=== PATIENT | male | born 1985 | race Caucasian/White ===

== ENCOUNTER 2021-03-07 12:35 | Emergency (ER) | payer BC ==
--- OUTSIDE RECORDS SUMMARY | 2021-03-07 12:38 | XMS REPORT | Continuity of Care Document ---
:1985 Author Organization [facility] t Address [address] [place] [address] Care Team Providers Name Role Phone Unavailable Unavailable Unavailable Problems This patient has no known problems. Allergies, Adverse Reactions, Alerts This patient has no known allergies or adverse reactions. Medications Ordered Filled Start Stop Current Ordering Indication Dosage Frequency Signature Comments Components Source Medication Medication Date Date Medication? Clinician (SIG) Name Name Sumatriptan Sumatriptan Yes Blair [address] [facility] Succinate Succinate 6-01 [place] [facility] Ventolin Ventolin Yes Blair [address] [facility] HFA HFA [place] [facility] Immunizations Ordered Filled Immunization Date Status Comments Sourc e Immunization Name Name Flucelvax - Flucelvax - 2019-04-[address] [facility] - multidose vial multidose vial 00:00:00 [facility] Procedures This patient has no known procedures. Encounters Start End Encounter Admission Attending Care Care Encounter Source Date/Time Date/Time Type Type Clinicians Facility Department ID 2021-03-06 2021-03-06 Outpatient [facility] [id number] [facility] 2020-06-12 2020-06-12 [facility] [id number] 2020-06-12 2020-06-12 Outpatient [facility] [id number] [facility] 2019-12-22 2019-12-22 [facility] [id number] [facility] 14:[facility]:00 14[facility]:[place] [facility] Medicine l Medicine Outpati ent Clinics 2019-11-16 2019-11-16 [facility] [id number] [facility] 15:20:00 15:20:00 [place] [facility] Medicine l Medicine Outpati ent Clinics 2019-10-20 2019-10-20 [facility] [id number] 13:45:00 13:45:00 [place] [employer] [facility] - [facility] l Medicine Outpati ent Clinics 2019-09-19 2019-09-19 [facility] [id number] [address] 13:15:00 13:15:00 [place] [employer] [facility] Medicine Outpati ent Clinics 2019-05-05 2019-05-05 [facility] [id number] [facility] 10:00:00 10:00:00 [place] [employer] [facility] Medicine l Medicine Outpati ent Clinics 2019-04-21 2019-04-21 [facility] [id number] [address] 09:30:00 09:30:00 [place] [employer] [facility] l Medicine Outpati ent Clinics 2019-04-20 2019-04-20 [facility] [id number] [facility] 15:00:00 15:00:00 [place] [employer] [facility] Medicine l Medicine Outpati ent Clinics 2018-10-11 2018-10-11 [facility] [id number] [facility] 10:00:00 10:00:00 [place] [employer] [facility] l Medicine Outpati ent Clinics 2018-01-21 2018-01-21 [facility] [id number] [address] 11:00:00 11:00:00 [place] [employer] [facility] Medicine Outpati ent Clinics 2017-12-11 2017-12-11 [facility] [id number] [facility] 10:15:00 10:15:00 t [email or web address] [facility] Medicine Outpati ent Clinics Results This patient has no known results.
--- NOTE | 2021-03-07 13:19 | RAD REPORT ---
EXAM DESCRIPTION: CT - Ct Stroke Brain Wo Cont - 03/07/2021 12:59 pm CLINICAL HISTORY: falcial droop COMPARISON: Head Brain Wo Cont dated 12/16/2017 TECHNIQUE: All CT scans are performed using dose optimization technique as appropriate and may inclu de automated exposure control or mA/KV adjustment according to patient size. FINDINGS: No intracranial hemorrhage, hydrocephalus or extra-axial fluid collection.No areas of brai n edema or evidence of midline shift. Remote left basal ganglia lacunar infarct. The paranasal sinuses and mastoids are clear. The calvarium is intact. IMPRESSION: No acute intracranial abnormality.
[2021-03-07 13:24] LABS: Absolute Lymphocytes (CBC) 2.2 K/uL (0.7-4.9); Basophils % 0.5 % (0-1.3); Hematocrit 42.9 % (39.6-49.0); MPV 8.1 fL (7.6-11.3)
[2021-03-07 13:41] LABS: Protime INR 0.99
[2021-03-07] MEDS ORDERED: ASPIRIN 81 MG CHEWABLE TABLET ONE (13:44)
[2021-03-07] MEDS ORDERED: predniSONE 20 MG TAB ONE (13:44)
[2021-03-07] MEDS ORDERED: FOLIC ACID 5 MG/ML VIAL ONE (13:45)
[2021-03-07] MEDS ORDERED: NA CHLORIDE 0.9% 1,000 ML ONE (13:45)
[2021-03-07 13:57] LABS: ALT/SGPT 33 U/L (12-78); AST/SGOT 12 U/L (15-37); Albumin 4.1 g/dL (3.4-5.0); Alkaline Phosphatase 41 U/L (45-117); BUN Blood Urea Nitrogen 10 mg/dL (7-18); Bicarbonate 29 mmol/L (21-32); Bilirubin Direct 0.1 mg/dL (0-0.2); Bilirubin Total 0.4 mg/dL (0.2-1.0); Glucose Level 96 mg/dL (74-106); NT PRO-BNP 18 pg/mL (<125); Protein, Total 7.5 g/dL (6.4-8.2); Sodium Level 140 mmol/L (136-145); Troponin (Emerg Dept Use Only) < 0.02 ng/mL (0.0-0.045)
[2021-03-07] MEDS ORDERED: VALACYCLOVIR 500 MG TAB PO ONE (14:00)
--- NOTE | 2021-03-07 14:37 | RAD REPORT ---
EXAM DESCRIPTION: - CP - 03/07/2021 2:13 pm CLINICAL HISTORY: WEAKNESS COMPARISON: No comparisons TECHNIQUE: Real-time sonographic evaluation of both carotid systems was performed. Doppler interroga tion was performed with waveform tracing bilaterally. FINDINGS: Normal high resistance waveforms are noted in both external carotid arteries. The common c arotid arteries and internal carotid arteries show normal low resistance waveforms. No significant plaque formation is seen. Peak systolic and end diastolic velocity values and the ICA/ CCA ratios are in the non-hemodynamically significant range. Antegrade flow seen in both vertebral arteries. IMPRESSION: No significant atherosclerotic changes noted. No evidence of a hemodynamically significant stenosis.
--- NOTE | 2021-03-07 14:57 | RAD REPORT ---
EXAM DESCRIPTION: MRI - Brain Wo Cont - 03/07/2021 2:33 pm CLINICAL HISTORY: Facial droop COMPARISON: Head CT from 03/07/2021, 12/16/2017 TECHNIQUE: Sagittal T1-weighted images were obtained along with PD/heavily T2-weighted and T2-FLAIR images. Axial DWI and ADC mapping sequences were also obtained along with coronal heavily T2-weighted images were obtained. FINDINGS: No intracranial hemorrhage, mass or acute infarction. There is no edema or shift of midlin e structures. No extra-axial fluid collections. Sandoval-matter/white matter junction is preserved. Signa l voids are seen as a normal finding in the major intracranial vessels. Remote left basal ganglia lac unar infarct. Mastoid air cells and paranasal sinuses are clear. IMPRESSION: No acute intracranial abnormality. Specifically, no evidence of acute infarct.
--- NOTE | 2021-03-07 15:14 | ER ---
Nurse's Notes [facility] Name: Shalom Gardner Jr Age: 35 yrs Sex: Male : 1985 Arrival Date: 03/07/2021 Time: 12:[address] Private MD: Diagnosis: Redi's palsy Presentation: 03/07 12:43 Chief complaint: Patient states: left sided facial droop, noticed it about an hour sv ago, unknown time of onset. Denies numbness/tingling, headache, visual deficits. Coronavirus screen: Client denies travel out of the [place] in the last 14 days. At this time, the client does not indicate any symptoms associated with coronavirus-19. Ebola Screen: No symptoms or risks identified at this time. Risk Assessment: Do you want to hurt yourself or someone else? Patient reports no desire to harm self or others. Onset of symptoms was March 07, 2021. 12:43 Method Of Arrival: Ambulatory sv 12:43 Acuity: TRINITY 2 sv 12:45 An acute neurological deficit is present. Pre-hospital glucose is not applicable to sv this patient. 12:45 Initial Sepsis Screen: Does the patient meet any 2 criteria? No. Patient's initial sv sepsis screen is negative. Does the patient have a suspected source of infection? No. Patient's initial sepsis screen is negative. Triage Assessment: 12:43 The onset of the patients symptoms was March 07, 2021 at 11:50. General: Appears in no sv apparent distress. comfortable, Behavior is calm, cooperative, appropriate for age. Pain: Denies pain. Neuro: Level of Consciousness is awake, alert, obeys commands, Oriented to person, place, time, situation, Health Outcomes Liaison are equal bilaterally Moves all extremities. Full function Gait is steady, Speech is normal, Facial droop on left, Facial symmetry: tongue is midline, Denies weakness blurred vision dizziness, numbness headache photophobia diplopia. Respiratory: Respiratory effort is even, unlabored, Respiratory pattern is regular, symmetrical. Derm: Skin is pink, warm \T\ dry. 13:10 Neuro: Reports weakness in left eye and left corner of mouth. ld1 Stroke Activation: Physician: Stroke Attending; Name: ; Notified At: 12:54; Arrived At: Physician: Chief Stroke Resident; Name: ; Notified At: 12:54; Arrived At: Physician: Stroke Resident; Name: ; Notified At: 12:54; Arrived At: Physician: ED Attending; Name: ; Notified At: 12:54; Arrived At: Physician: ED Resident; Name: ; Notified At: 12:54; Arrived At: Historical: - Allergies: 12:45 No Known Allergies; sv - PMHx: 12:45 Asthma; sv - PSHx: 12:45 Ulcer; sv - Immunization history:: Client reports receiving the 2nd dose of the Covid vaccine, Client reports receiving the 1st dose of the Covid vaccine. - Social history:: Smoking status: Patient denies any tobacco usage or history of. - Family history:: not pertinent. Screenin:27 Abuse screen: Denies threats or abuse. Denies injuries from another. Nutritional ld1 screening: No deficits noted. Tuberculosis screening: No symptoms or risk factors identified. Fall Risk None identified. Assessment: 12:50 Reassessment: Dr Prince in triage assessing pt. sv 13:10 VAN Scoring: Arm Drift: Patients demonstrates NO arm weakness. Patient is VAN Negative. ld1 Visual Disturbance: No visual disturbance noted. Aphasia: No aphasia noted. Neglect: No neglect noted. Patient has been NPO before screening. The patient is alert, and able to follow commands. The patient does not exhibit slurred or garbled speech. The patient is not exhibiting difficulty speaking. The patient does not exhibit difficulty understanding words. The patient is able to swallow own secretions with no drooling or need for suction. Patient tolerated one teaspoon of water. No drooling, immediate coughing, gurgling, or clearing of the throat was noted. The patient tolerated 90mL of water. No drooling, immediate coughing, gurgling, or clearing of the throat was noted. The patient passed the bedside swallow screening. Oral medications may be given as ordered. Contact Physician for further diet orders. Provider notified of bedside swallow screening results: Jose David Prince MD. T-PA (Activase) Screening: Indications: Definite evidence of stroke, ischemic, embolic, or hypertensive: No. General: Appears in no apparent distress. comfortable, Behavior is calm, cooperative, appropriate for age. Pain: Denies pain. Neuro: Level of Consciousness is awake, alert, obeys commands, Oriented to person, place, time, situation, Appropriate for age. Cardiovascular: Capillary refill < 3 seconds Patient's skin is warm and dry. Respiratory: Airway is patent Respiratory effort is even, unlabored, Respiratory pattern is regular, symmetrical. GI: Abdomen is round non-distended. : No signs and/or symptoms were reported regarding the genitourinary system. EENT: No signs and/or symptoms were reported regarding the EENT system. Derm: No signs and/or symptoms reported regarding the dermatologic system. Musculoskeletal: No signs and/or symptoms reported regarding the musculoskeletal system. Vital Signs: 12:45 BP 139 / 90; Pulse 71; Resp 16; Temp 98.3; Pulse Ox 100% ; Weight 122.47 kg; Height 6 sv ft. 0 in. (182.88 cm); Pain 0/10; 13:10 BP 129 / 78; Pulse 73; Resp 15; Temp 98.5(O); Pulse Ox 100% on R/A; Weight 122.47 kg; ld1 Height 6 ft. 0 in. (182.88 cm); Pain 0/10; 13:10 Body Mass Index 36.62 (122.47 kg, 182.88 cm) ld1 NIH Stroke Scale Scores: 13:10 NIHSS Score: 1 ld1 ED Course: 12:39 Patient arrived in ED. ja2 12:43 Arm band placed on. sv 12:45 Triage completed. sv 12:54 Jose David Prince MD is Attending Physician. rah 12:59 CT Stroke Brain w/o Contrast In Process Unspecified. EDMS 13:10 Inserted saline lock: 20 gauge in left antecubital area, using aseptic technique. Blood ld1 collected. 13:26 Melina Amezcua, RN is Primary Nurse. ld1 13:27 Patient has correct armband on for positive identification. Placed in gown. Bed in low ld1 position. Call light in reach. Side rails up X2. court monitor on. Pulse ox on. NIBP on. Door closed. Noise minimized. Warm blanket given. 13:27 No provider procedures requiring assistance completed. ld1 13:35 Carotid Artery Bilateral US In Process Unspecified. EDMS 14:33 Brain Wo Cont In Process Unspecified. EDMS 15:10 XRAY Chest (1 view) In Process Unspecified. EDMS 15:13 Michael Alba MD is Referral Physician. rah 15:26 IV discontinued, intact, bleeding controlled, No redness/swelling at site. ld1 Administered Medications: 13:25 Drug: Valtrex (valACYclovir) 1000 mg Route: PO; ld1 13:48 Follow up: Response: No adverse reaction ld1 13:40 Drug: foLIC Acid 1 mg Route: IVPB; Site: left antecubital; ld1 13:48 Follow up: Response: No adverse reaction ld1 13:40 Drug: predniSONE 60 mg Route: PO; ld1 13:48 Follow up: Response: No adverse reaction ld1 13:41 Drug: NS 0.9% 1000 ml Route: IV; Rate: 1 bolus; Site: left antecubital; ld1 13:41 Drug: Aspirin Chewable Tablet 324 mg Route: PO; ld1 13:48 Follow up: Response: No adverse reaction ld1 Point of Care Testing: Blood Glucose: 13:10 Blood Glucose: 93 mg/dL; ld1 Ranges: Outcome: 15:13 Discharge ordered by . rah 15:26 Discharged to home ambulatory. ld1 15:26 Condition: stable 15:26 Discharge instructions given to patient, Instructed on discharge instructions, follow up and referral plans. medication usage, Demonstrated understanding of instructions, follow-up care, medications, Prescriptions given X 3. 15:28 Patient left the ED. ld1 NIH Stroke Scale - NIH Stroke Score Date: 03/07/2021 Time: 13:10 Total Score = 1 1a. Level of Consciousness (LOC) - 0(Alert) 1b. Level of Consciousness (LOC) (Month \T\ Age) - 0(Both) 1c. LOC Commands (Open \T\ Closes Eyes/Trial Attorney) - 0(Both) 2. Best Gaze (Lateral Gaze Paresis) - 0(Normal) 3. Visual Field Loss - 0(No visual loss) 4. Facial Palsy - 1(Minor Paralysis) 5a. Left Arm: Motor (10-second hold) - 0(No drift) 5b. Right Arm: Motor (10-second hold) - 0(No drift) 6a. Left Leg: Motor (5-second hold - always test supine) - 0(No drift) 6b. Right Leg: Motor (5-second hold - always test supine) - 0(No drift) 7. Limb Ataxia (finger/nose \T\ heel/adams - test with eyes open) - 0(Absent) 8. Sensory Loss (pinprick arms/legs/face) - 0(Normal) 9. Best Language: Aphasia (description/naming/reading) - 0(No aphasia) 10. Dysarthria (speech clarity - read or repeat words) - 0(Normal) 11. Extinction and Inattention (visual/tactile/auditory/spatial/personal) - 0(No abnormality) Initials: ld1 Signatures: Dispatcher [employer] Carolyn Abbasi RN RN Jose David Edwards MD MD cha Dibbern, Lauren, RN RN ld1 Janel Richards Corrections: (The following items were deleted from the chart) 12:47 12:43 Chief complaint: Patient states: left sided facial droop, noticed it sv about an hour ago, known time of onset. sv 12:48 12:45 Pulse 71bpm; Resp 16bpm; Pulse Ox 100%; Temp 98.3F; 122.47 kg; Height 6 sv ft. 0 in.; BMI: 36.6; Pain 0/10; sv 12:53 12:43 Acuity: TRINITY 3 sv sv 13:45 13:27 BP 129 / 78; Pulse 73bpm; Resp 15bpm; Pulse Ox 100% RA; Temp 98.5F Oral; ld1 122.47 kg; Height 6 ft. 0 in.; BMI: 36.6; Pain 0/10; ld1 13:45 13:27 Inserted saline lock: 20 gauge in left antecubital area, using aseptic ld1 technique. Blood collected. ld1 13:46 13:27 NIHSS Score: 1 ld1 ld1 13:47 13:27 VAN Scoring: Arm Drift: Patients demonstrates NO arm weakness. Patient is ld1 VAN Negative. Visual Disturbance: No visual disturbance noted. Aphasia: No aphasia noted. Neglect: No neglect noted. ld1 13:47 13:27 Patient has been NPO before screening. The patient is alert, and able to ld1 follow commands. The patient does not exhibit slurred or garbled speech. The patient is not exhibiting difficulty speaking. The patient does not exhibit difficulty understanding words. The patient is able to swallow own secretions with no drooling or need for suction. Patient tolerated one teaspoon of water. No drooling, immediate coughing, gurgling, or clearing of the throat was noted. The patient tolerated 90mL of water. No drooling, immediate coughing, gurgling, or clearing of the throat was noted. The patient passed the bedside swallow screening. Oral medications may be given as ordered. Contact Physician for further diet orders. Provider notified of bedside swallow screening results: Jose David Prince MD ld1 13:27 T-PA (Activase) Screening: Indications: Definite evidence of stroke, ld1 ischemic, embolic, or hypertensive: No. ld1 13:27 General: Appears in no apparent distress. comfortable, Behavior is calm, ld1 cooperative, appropriate for age, ld1 13: Pain: Denies pain. ld1 ld1 13:27 Neuro: Level of Consciousness is awake, alert, obeys commands, Oriented ld1 to person, place, time, situation, Appropriate for age ld1 13:27 Cardiovascular: Capillary refill < 3 seconds Patient's skin is warm and ld1 dry. ld1 13:27 Respiratory: Airway is patent Respiratory effort is even, unlabored, ld1 Respiratory pattern is regular, symmetrical, ld1 13:27 GI: Abdomen is round non-distended, ld1 ld1 13:27 : No signs and/or symptoms were reported regarding the genitourinary ld1 system. ld1 13:27 EENT: No signs and/or symptoms were reported regarding the EENT system. ld1 ld1 13:27 Derm: No signs and/or symptoms reported regarding the dermatologic ld1 system. ld1 13:27 Musculoskeletal: No signs and/or symptoms reported regarding the ld1 musculoskeletal system. ld1 14:33 12:43 Chief complaint: Patient states: left sided facial droop, noticed it sv about an hour ago, known time of onset. Denies numbness/tingling, headache, visual deficits. sv
--- NOTE | 2021-03-07 15:14 | EDPHYS ---
Physician Documentation [facility] Name: Shalom Gardner Jr Age: 35 yrs Sex: Male : 1985 Arrival Date: 03/07/2021 Time: 12:[address] Private MD: MATTI Physician Jose David Prince HPI: 03/07 13:00 This 35 yrs old Male presents to ER via Ambulatory with complaints of Facial rah Droop. 13:00 The patient presents to the emergency department with weakness of the left side of the rah face, that is mild. Onset: The symptoms/episode began/occurred just prior to arrival, 1 hour(s) ago. Context: occurred at home, occurred while the patient was at rest. Associated signs and symptoms: The patient has no apparent associated signs or symptoms. Severity of symptoms: At their worst the symptoms were mild in the emergency department the symptoms are unchanged. Patient's baseline: Neuro:. Current symptoms: Currently, the patient is not experiencing any symptoms, the patient feels back to baseline. The patient has not experienced similar symptoms in the past. Historical: - Allergies: 12:45 No Known Allergies; sv - PMHx: 12:45 Asthma; sv - PSHx: 12:45 Ulcer; sv - Immunization history:: Client reports receiving the 2nd dose of the Covid vaccine, Client reports receiving the 1st dose of the Covid vaccine. - Social history:: Smoking status: Patient denies any tobacco usage or history of. - Family history:: not pertinent. ROS: 13:00 Constitutional: Negative for fever, chills, and weight loss, Eyes: Negative for injury, rah pain, redness, and discharge, ENT: Negative for injury, pain, and discharge, Neck: Negative for injury, pain, and swelling, Cardiovascular: Negative for chest pain, palpitations, and edema, Respiratory: Negative for shortness of breath, cough, wheezing, and pleuritic chest pain, Abdomen/GI: Negative for abdominal pain, nausea, vomiting, diarrhea, and constipation, Back: Negative for injury and pain, : Negative for injury, bleeding, discharge, and swelling, MS/Extremity: Negative for injury and deformity, Skin: Negative for injury, rash, and discoloration, Psych: Negative for depression, anxiety, suicide ideation, homicidal ideation, and hallucinations, Allergy/Immunology: Negative for hives, rash, and allergies, Endocrine: Negative for neck swelling, polydipsia, polyuria, polyphagia, and marked weight changes, Hematologic/Lymphatic: Negative for swollen nodes, abnormal bleeding, and unusual bruising. 13:00 Neuro: Positive for weakness, of the left cheek and left jaw. Exam: 13:00 Constitutional: This is a well developed, well nourished patient who is awake, alert, rah and in no acute distress. Head/Face: Normocephalic, atraumatic. Eyes: Pupils equal round and reactive to light, extra-ocular motions intact. Lids and lashes normal. Conjunctiva and sclera are non-icteric and not injected. Cornea within normal limits. Periorbital areas with no swelling, redness, or edema. ENT: Nares patent. No nasal discharge, no septal abnormalities noted. Tympanic membranes are normal and external auditory canals are clear. Oropharynx with no redness, swelling, or masses, exudates, or evidence of obstruction, uvula midline. Mucous membranes moist. Neck: Trachea midline, no thyromegaly or masses palpated, and no cervical lymphadenopathy. Supple, full range of motion without nuchal rigidity, or vertebral point tenderness. No Meningismus. Chest/axilla: Normal chest wall appearance and motion. Nontender with no deformity. No lesions are appreciated. Cardiovascular: Regular rate and rhythm with a normal S1 and S2. No gallops, murmurs, or rubs. Normal PMI, no JVD. No pulse deficits. Respiratory: Lungs have equal breath sounds bilaterally, clear to auscultation and percussion. No rales, rhonchi or wheezes noted. No increased work of breathing, no retractions or nasal flaring. Abdomen/GI: Soft, non-tender, with normal bowel sounds. No distension or tympany. No guarding or rebound. No evidence of tenderness throughout. Male : Normal genitalia with no discharge or lesions. Skin: Warm, dry with normal turgor. Normal color with no rashes, no lesions, and no evidence of cellulitis. MS/ Extremity: Pulses equal, no cyanosis. Neurovascular intact. Full, normal range of motion. Psych: Awake, alert, with orientation to person, place and time. Behavior, mood, and affect are within normal limits. 13:00 Neuro: Orientation: is normal, appropriate for stated age, no acute changes, Mentation: is normal, appropriate for stated age, no acute changes, Memory: is normal, appropriate for stated age, no acute changes, Cranial nerves: grossly normal, facial droop noted on left, with forehead spared. Cerebellar function: is grossly normal, is grossly normal based on the patient's age, no acute changes, Motor: is normal, is grossly normal based on the patient's age, no acute changes, moves all fours, strength is normal. 13:53 ECG was reviewed by the Attending Physician. [facility] Vital Signs: 12:45 BP 139 / 90; Pulse 71; Resp 16; Temp 98.3; Pulse Ox 100% ; Weight 122.47 kg; Height 6 sv ft. 0 in. (182.88 cm); Pain 0/10; 13:10 BP 129 / 78; Pulse 73; Resp 15; Temp 98.5(O); Pulse Ox 100% on R/A; Weight 122.47 kg; ld1 Height 6 ft. 0 in. (182.88 cm); Pain 0/10; 13:10 Body Mass Index 36.62 (122.47 kg, 182.88 cm) ld1 NIH Stroke Scale Scores: 13:10 NIHSS Score: 1 ld1 MDM: 13:00 Patient medically screened. [facility] 13:02 Data reviewed: vital signs, nurses notes, lab test result(s), EKG, radiologic studies, [facility] CT scan, MRI, plain films. Data interpreted: bill recapitulation clerk: rate is 71 beats/min, rhythm is regular, Pulse oximetry: is not applicable for this patient encounter. on. Test interpretation: by ED physician or midlevel provider: ECG, plain radiologic studies. Counseling: I had a detailed discussion with the patient and/or guardian regarding: the historical points, exam findings, and any diagnostic results supporting the discharge/admit diagnosis, lab results. 03/07 12:55 Order name: Basic Metabolic Panel; Complete Time: 14: [facility] 03/07 12:55 Order name: CBC with Diff; Complete Time: 14: [facility] 03/07 12:55 Order name: LFT's; Complete Time: 14: [facility] 03/07 12:55 Order name: Magnesium; Complete Time: 14: [facility] 03/07 12:55 Order name: NT PRO-BNP; Complete Time: 14: [facility] 03/07 12:55 Order name: PT-INR; Complete Time: 14:02 [facility] 03/07 12:53 Order name: CT Stroke Brain w/o Contrast; Complete Time: 14:02 03/07 12:55 Order name: Troponin (emerg Dept Use Only); Complete Time: 14:02 [facility] 03/07 12:55 Order name: XRAY Chest (1 view) [facility] 03/07 12:59 Order name: CRP; Complete Time: 14:16 [facility] 03/07 12:59 Order name: Sed Rate; Complete Time: 14:02 [facility] 03/07 12:59 Order name: Carotid Artery Bilateral US; Complete Time: 15:12 [facility] 03/07 13:24 Order name: Glucose, Ancillary Testing; Complete Time: 14:02 EDMS 03/07 12:55 Order name: EKG; Complete Time: 12:56 [facility] 03/07 12:55 Order name: Cardiac monitoring; Complete Time: 13:18 [facility] 03/07 12:55 Order name: EKG - Nurse/Tech; Complete Time: 13:41 [facility] 03/07 12:55 Order name: IV Saline Lock; Complete Time: 13:18 [facility] 03/07 12:55 Order name: Labs collected and sent; Complete Time: 13:18 [facility] 03/07 12:55 Order name: O2 Per Protocol; Complete Time: 13:18 [facility] 03/07 12:55 Order name: O2 Sat Monitoring; Complete Time: 13:18 [facility] 03/07 14:01 Order name: Brain Wo Cont; Complete Time: 15:12 EDMS EC:53 Rate is 69 beats/min. Rhythm is regular. QRS [place] is Normal. NH interval is normal. QRS rah interval is normal. QT interval is normal. No Q waves. T waves are Normal. No ST changes noted. Clinical impression: NSR w/ Non-specific ST/T Changes and No evidence of ischemia. Interpreted by me. Reviewed by me. Administered Medications: 13:25 Drug: Valtrex (valACYclovir) 1000 mg Route: PO; ld1 13:48 Follow up: Response: No adverse reaction ld1 13:40 Drug: foLIC Acid 1 mg Route: IVPB; Site: left antecubital; ld1 13:48 Follow up: Response: No adverse reaction ld1 13:40 Drug: predniSONE 60 mg Route: PO; ld1 13:48 Follow up: Response: No adverse reaction ld1 13:41 Drug: NS 0.9% 1000 ml Route: IV; Rate: 1 bolus; Site: left antecubital; ld1 13:41 Drug: Aspirin Chewable Tablet 324 mg Route: PO; ld1 13:48 Follow up: Response: No adverse reaction ld1 Point of Care Testing: Blood Glucose: 13:10 Blood Glucose: 93 mg/dL; ld1 Ranges: Critical Glucose Levels:Adult <50 mg/dl or >400 mg/dl <40 mg/dl or >180 mg/dl Disposition Summary: 03/07/21 15:13 Discharge Ordered Location: Home rah Problem: new rah Symptoms: have improved rah Condition: Stable rah Diagnosis - Reid's palsy rah Followup: rah - With: Private Physician - When: 2 - 3 days - Reason: Recheck today's complaints, Continuance of care, Re-evaluation by your physician Followup: rah - With: Michael Alba MD - When: 2 - 3 days - Reason: Recheck today's complaints, Continuance of care, Re-evaluation by your physician Discharge Instructions: - Discharge Summary Sheet rah - Reid Palsy, Adult rah - Aspirin and Your Heart rah Forms: - Medication Reconciliation Form [facility] - Thank You Letter rah - Antibiotic Education rah - Prescription Opioid Use [facility] Prescriptions: - Valtrex 1 gram Oral tablet - take 1 tablet by ORAL route 3 times per day for 7 days; 21 tablet; Refills: 0, [facility] Product Selection Permitted - Prednisone 20 mg Oral Tablet - take 3 tablets by ORAL route once daily for 5 days; 15 tablet; Refills: 0, [facility] Product Selection Permitted - Artificial Tears (polyvin alc) - place 1 application by OPHTHALMIC route 8 times per day; 10 milliliter; [facility] Refills: 0, Product Selection Permitted NIH Stroke Scale - NIH Stroke Score Date: 03/07/2021 Time: 13:10 Total Score = 1 1a. Level of Consciousness (LOC) - 0(Alert) 1b. Level of Consciousness (LOC) (Month \T\ Age) - 0(Both) 1c. LOC Commands (Open \T\ Closes Eyes/Vocational Rehabilitation Supervisor) - 0(Both) 2. Best Gaze (Lateral Gaze Paresis) - 0(Normal) 3. Visual Field Loss - 0(No visual loss) 4. Facial Palsy - 1(Minor Paralysis) 5a. Left Arm: Motor (10-second hold) - 0(No drift) 5b. Right Arm: Motor (10-second hold) - 0(No drift) 6a. Left Leg: Motor (5-second hold - always test supine) - 0(No drift) 6b. Right Leg: Motor (5-second hold - always test supine) - 0(No drift) 7. Limb Ataxia (finger/nose \T\ heel/adams - test with eyes open) - 0(Absent) 8. Sensory Loss (pinprick arms/legs/face) - 0(Normal) 9. Best Language: Aphasia (description/naming/reading) - 0(No aphasia) 10. Dysarthria (speech clarity - read or repeat words) - 0(Normal) 11. Extinction and Inattention (visual/tactile/auditory/spatial/personal) - 0(No abnormality) Initials: ld1 Signatures: Dispatcher [employer] EDCarolyn Howe RN RN sv Anderson, Corey, MD MD cha Dibbern, Lauren, RN RN ld1 Corrections: (The following items were deleted from the chart) 14:01 12:59 MR STROKE PROTOCOL+MRI.RAD.BRZ ordered. EDMS EDMS
--- NOTE | 2021-03-07 15:20 | RAD REPORT ---
EXAM DESCRIPTION: RAD - Chest Single View - 03/07/2021 3:10 pm CLINICAL HISTORY: COUGH COMPARISON: No comparisons FINDINGS: No evidence of edema or pneumonia. The heart size is within normal limits.No acute osseous abnormality. No significant pleural effusions or pneumothorax. IMPRESSION: No acute cardiopulmonary disease.
[2021-03-07 15:34] VITALS: O2SAT 100
[2021-03-07 15:35] VITALS: BP 129/78; TEMP 98.5
== END 2021-03-07 15:28 | disposition home or self-care (01) ==
LOC: ER 12:35
DX: G51.0 Bell's palsy (principal)
CPT/HCPCS: 93005; 85025; 80048; 36415; 83735; 85610; 82947; 80076; 85652; 84484; 83880; 86140; 70450; 71045; 93880; 70551; 96374; 99284; J7030; J7512